=== PATIENT | male | born 1985 | race Asian ===

== ENCOUNTER 2018-02-26 15:40 | Emergency (ER) | payer OTHER ==
[~2018-02-26] VITALS: Ht 170 cm; Wt 65.0 kg
[2018-02-26 15:47] VITALS: BP 125/79; TEMP 98
[2018-02-26] MEDS ORDERED: ZOFRAN ODT4 MG PO (18:27)
[2018-02-26] MEDS ORDERED: FIORICET 325 MG1 TA1 PO (18:27)
[2018-02-26 18:40] VITALS: PULSE 60
== END 2018-02-26 18:40 | disposition home or self-care (01) ==
LOC: COL.ER 15:40
DX: R51 Headache (principal)
CPT/HCPCS: J1885